=== PATIENT | female | born 1940 | race Caucasian/White ===

== ENCOUNTER 2018-05-20 19:41 | Emergency (ER) | payer MEDICARE ==
[~2018-05-20] VITALS: Ht 170.2 cm; Wt 90.0 kg
[2018-05-20 19:47] VITALS: BP 164/83
== END 2018-05-20 21:16 | disposition home or self-care (01) ==
LOC: ED 21:10
DX: G89.11 Acute pain due to trauma (principal); M79.672 Pain in left foot; X50.9XXA Other and unspecified overexertion or strenuous movements or postures, initial encounter; X50.1XXA Overexertion from prolonged static or awkward postures, initial encounter; Y93.89 Activity, other specified; Y92.89 Other specified places as the place of occurrence of the external cause; Y99.8 Other external cause status
CPT/HCPCS: 99283